=== PATIENT | female | born 1985 | race American Indian/Alaskan Native ===

== ENCOUNTER 2018-04-17 22:10 | Emergency (ER) | payer SELFPAY ==
[2018-04-17] MEDS ORDERED: MOTRIN ONE (22:46)
[2018-04-17 22:55] VITALS: BP 116/75
[2018-04-17] MEDS ORDERED: MOTRIN PO ONE (22:58)
--- NOTE | 2018-04-17 23:30 | XRay Report ---
FINAL REPORT PROCEDURE: XR SPINE LUMBOSACRAL 2-3V TECHNIQUE: Lumbar spine radiographs, including AP, lateral, and lumbosacral spot views. CPT 82888 HISTORY: Lower back pain. COMPARISON: No prior studies are available for comparison. FINDINGS: Alignment: Slight dextroscoliotic curvature. Vertebral body heights/Disk spaces: Mild L5-S1 disc space narrowing. Fracture(s): Subtle lucency through the left L1 transverse process. Facets: Normal. Bone mineralization: Normal. IMPRESSION: Subtle lucency through the left L1 transverse process, most likely overlying soft tissues or congenital non fusion. Consider further evaluation and followup if there is concern for minimally displaced fracture. Mild L5-S1 degenerative change.
[2018-04-18] MEDS ORDERED: TORADOL ONE (01:36)
[2018-04-18] MEDS ORDERED: FLEXERIL ONE (01:36)
[2018-04-18] MEDS ORDERED: TORADOL IM ONE (02:07)
[2018-04-18] MEDS ORDERED: FLEXERIL PO ONE (02:07)
--- NOTE | 2018-04-18 02:25 | Emergency Department Report ---
ED Back Pain/Injury HPI - General Chief Complaint: Back Pain/Injury Stated Complaint: LOWER BACK PAIN Time Seen by Provider: 04/18/18 01:48 Source: patient Limitations: No Limitations - History of Present Illness Initial Comments: 32-year-old female past medical history diabetes presents with complaint of left back pain. 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 States that it was specifically when she was bending over slightly. Patient denies any fevers chills nausea vomiting chest pain abdominal pain paresthesias or saddle paresthesias. Patient is ambulatory without assistance. States it felt like a severe muscle strain. Denies any chest pain radiating to back. Patient is fully lucid. States her pain is significantly better after medicines that were given by paramedics earlier. Patient denies any increased urinary frequency fevers or chills. MD Complaint: back pain -: This evening Place: home Severity: moderate Severity scale (0 -10): 5 Quality: aching Consistency: intermittent Improves With: movement Context: turning/twisting, bending Associated Symptoms: denies other symptoms - Related Data Home Medications Medication Instructions Recorded Confirmed Last Taken metFORMIN 500 mg PO BID 04/17/18 04/17/18 Unknown Previous Rx's Medication Instructions Recorded Last Taken Type Blood Sugar Diagnostic [Accu-Chek 1 each MC QDAY #1 box 04/18/18 Unknown Rx Guide Test Strip] Cyclobenzaprine [Flexeril] 10 mg PO TID PRN #15 tablet 04/18/18 Unknown Rx Naproxen 500 mg PO BID PRN #20 tablet 04/18/18 Unknown Rx Allergies Allergy/AdvReac Type Severity Reaction Status Date / Time No Known Allergies Allergy Verified 04/17/18 22:58 ED Review of Systems ROS: Stated complaint: LOWER BACK PAIN Other details as noted in HPI Constitutional: denies: chills, fever Eyes: denies: eye pain, eye discharge, vision change ENT: denies: ear pain, throat pain Respiratory: denies: cough, shortness of breath, wheezing Cardiovascular: denies: chest pain, palpitations Endocrine: no symptoms reported Gastrointestinal: denies: abdominal pain, nausea, diarrhea Genitourinary: denies: urgency, dysuria, discharge Musculoskeletal: back pain. denies: joint swelling, arthralgia Skin: denies: rash, lesions Neurological: denies: headache, weakness, paresthesias Psychiatric: denies: anxiety, depression Hematological/Lymphatic: denies: easy bleeding, easy bruising ED Past Medical Hx - Past Medical History Hx Diabetes: Yes Additional medical history: Chronic Bronchitis - Surgical History Past Surgical History?: No - Social History Smoking Status: Current Every Day Smoker Substance Use Type: None - Medications Home Medications: Home Medications Medication Instructions Recorded Confirmed Last Taken Type metFORMIN 500 mg PO BID 04/17/18 04/17/18 Unknown History Blood Sugar Diagnostic [Accu-Chek 1 each MC QDAY #1 box 04/18/18 Unknown Rx Guide Test Strip] Cyclobenzaprine [Flexeril] 10 mg PO TID PRN #15 tablet 04/18/18 Unknown Rx Naproxen 500 mg PO BID PRN #20 tablet 04/18/18 Unknown Rx ED Physical Exam - General Limitations: No Limitations General appearance: alert, in no apparent distress - Head Head exam: Present: atraumatic, normocephalic - Eye Eye exam: Present: normal appearance, PERRL, EOMI - ENT ENT exam: Present: mucous membranes moist - Neck Neck exam: Present: normal inspection - Respiratory Respiratory exam: Present: normal lung sounds bilaterally. Absent: respiratory distress - Cardiovascular Cardiovascular Exam: Present: regular rate, normal rhythm. Absent: systolic murmur, diastolic murmur, rubs, gallop - GI/Abdominal GI/Abdominal exam: Present: soft, normal bowel sounds - Extremities Exam Extremities exam: Present: normal inspection - Back Exam Back exam: Present: normal inspection, full ROM, paraspinal tenderness (no midline tenderness cervical thoracic or lumbar spine. Slight paraspinal left- sided thoracic/lumbar tenderness.) - Neurological Exam Neurological exam: Present: alert, oriented X3, CN II-XII intact, normal gait - Expanded Neurological Exam Expanded Patient oriented to: Present: person, place, time Sensory exam: Upper Extremity Light Touch: Normal, Lower Extremity Light Touch: Normal Motor strength exam: RUE: 5, LUE: 5, RLE: 5, LLE: 5 Best Eye Response (Don): (1) no response Best Motor Response ([place]): (6) obeys commands Best Verbal Response ([place]): (5) oriented Don Total: 12 - Psychiatric Psychiatric exam: Present: normal affect, normal mood - Skin Skin exam: Present: warm, dry, intact, normal color. Absent: rash ED Course Vital Signs 04/17/18 04/17/18 04/17/18 22:41 22:59 23:59 Temperature 98.5 F Pulse Rate 82 Respiratory 16 18 18 Rate Blood Pressure 116/75 O2 Sat by Pulse 100 Oximetry 04/18/18 02:08 Temperature Pulse Rate Respiratory 18 Rate Blood Pressure O2 Sat by Pulse Oximetry ED Medical Decision Making - Medical Decision Making A/P: Acute on chronic back pain, herniated disc 1-Flexeril and naproxen when necessary 2-follow up with primary care and outpatient neurosurgery 3-x-ray consistent with degenerative changes 4-she feels significantly better after dose of Toradol. Critical care attestation.: If time is entered above; I have spent that time in minutes in the direct care of this critically ill patient, excluding procedure time. ED Disposition Clinical Impression: Back pain Qualifiers: Back pain location: low back pain Chronicity: acute Back pain laterality: left Sciatica presence: without sciatica Qualified Code(s): M54.5 - Low back pain Disposition: DC- TO HOME OR SELFCARE Is pt being admited?: No Does the pt Need Aspirin: No Condition: Stable Instructions: Muscle Spasm (ED), Chronic Back Pain (ED), Back Pain (ED) Prescriptions: Blood Sugar Diagnostic [Accu-Chek Guide Test Strip] 1 each MC QDAY #1 box Cyclobenzaprine [Flexeril] 10 mg PO TID PRN #15 tablet PRN Reason: Muscle Spasm Naproxen 500 mg PO BID PRN #20 tablet PRN Reason: Pain Referrals: [facility] [Provider Group] - 3-5 Days [facility] [Outside] - 3-5 Days LORY MCALLISTER MD [Staff Physician] - 3-5 Days Forms: Accompanied Note, Work/School Release Form(ED) Time of Disposition: 03:09
== END 2018-04-18 03:19 | disposition home or self-care (01) ==
LOC: ED 22:10
DX: M54.5 Low back pain (principal); E11.9 Type 2 diabetes mellitus without complications; F17.200 Nicotine dependence, unspecified, uncomplicated; Z79.84 Long term (current) use of oral hypoglycemic drugs
CPT/HCPCS: 72100; 96372; 99283; J1885

== ENCOUNTER 2018-08-19 10:57 | Emergency (ER) | payer SELFPAY ==
[2018-08-19 11:37] VITALS: BP 130/74
--- NOTE | 2018-08-19 13:01 | Emergency Department Report ---
Abscess Boil HPI - HPI Chief Complaint: Skin/Abscess/Foreign Body Stated Complaint: CHEST TIGHTEN/LUMP ON BREAST Time Seen by Provider: 08/19/18 12:56 Duration: 2 Days Location: Other (right breast) Severity: Severe (06/19) History: Yes Pain (right breast pain), Yes Purulent Drainage (right breast), Yes Previous History (multiple episodes on both breasts in the past), No Fever, No Numbness, No Foreign Body, No Insect Bite HPI: This is a 32-year-old female presented emergency room with abscess to right breast and she says she gets this several times. She says she has been evaluated by [employer] and she is gotten a mammogram in the past. She said her mom has the same problem and she has been getting this since she was 22 years old. Reports she has been post and warm compresses the site. now it open injuring in small amount of pus. Denies any fever or chills. Home Medications: Home Medications Medication Instructions Recorded Confirmed Last Taken metFORMIN 500 mg PO BID 04/17/18 04/17/18 Unknown Previous Rx's Medication Instructions Recorded Last Taken Type Blood Sugar Diagnostic [Accu-Chek 1 each MC QDAY #1 box 04/18/18 Unknown Rx Guide Test Strip] Cyclobenzaprine [Flexeril] 10 mg PO TID PRN #15 tablet 04/18/18 Unknown Rx Naproxen 500 mg PO BID PRN #20 tablet 04/18/18 Unknown Rx Sulfamethoxazole/Trimethoprim 1 each PO BID 10 Days #20 tablet 08/19/18 Unknown Rx [Bactrim DS TAB] cephALEXin [Keflex] 500 mg PO Q8HR 10 Days #30 cap 08/19/18 Unknown Rx traMADol [Ultram 50 MG tab] 50 mg PO Q6HR PRN #20 tablet 08/19/18 Unknown Rx Allergies/Adverse Reactions: Allergies Allergy/AdvReac Type Severity Reaction Status Date / Time No Known Allergies Allergy Verified 04/17/18 22:58 ED Review of Systems ROS: Stated complaint: CHEST TIGHTEN/LUMP ON BREAST Other details as noted in HPI Constitutional: denies: chills, fever Eyes: denies: eye discharge ENT: denies: ear pain, throat pain, congestion Respiratory: denies: cough, shortness of breath, SOB with exertion, SOB at rest , stridor, wheezing Cardiovascular: denies: chest pain, palpitations, dyspnea on exertion, edema, syncope Gastrointestinal: denies: abdominal pain, nausea, vomiting, diarrhea Musculoskeletal: denies: back pain, joint swelling, arthralgia, myalgia Skin: other (abscess to right prior). denies: rash, lesions Neurological: denies: headache, paresthesias Hematological/Lymphatic: easy bleeding, easy bruising ED Past Medical Hx - Past Medical History Previous Medical History?: Yes Hx Diabetes: Yes Additional medical history: Chronic Bronchitis - Surgical History Past Surgical History?: No - Family History Family history: hypertension - Social History Smoking Status: Current Every Day Smoker Substance Use Type: None - Medications Home Medications: Home Medications Medication Instructions Recorded Confirmed Last Taken Type metFORMIN 500 mg PO BID 04/17/18 04/17/18 Unknown History Blood Sugar Diagnostic [Accu-Chek 1 each MC QDAY #1 box 04/18/18 Unknown Rx Guide Test Strip] Cyclobenzaprine [Flexeril] 10 mg PO TID PRN #15 tablet 04/18/18 Unknown Rx Naproxen 500 mg PO BID PRN #20 tablet 04/18/18 Unknown Rx Sulfamethoxazole/Trimethoprim 1 each PO BID 10 Days #20 tablet 08/19/18 Unknown Rx [Bactrim DS TAB] cephALEXin [Keflex] 500 mg PO Q8HR 10 Days #30 cap 08/19/18 Unknown Rx traMADol [Ultram 50 MG tab] 50 mg PO Q6HR PRN #20 tablet 08/19/18 Unknown Rx ED Abscess Boil Physical Exam - Exam General: Vital signs noted. No distress. Alert and acting appropriately. Front/Back of Body, Lg (Color): 1 - Patient with 2 cm indurated, fluctuant abscess to right breast. Surrounding erythema. Tender to palpate. No nipple involvement. Abscess is localized and bilateral breast exam is normal Size: 2 cm Exam: Yes Tenderness (localized to right anterolateral breasts. This is at the 3 o'clock position but they have), Yes Fluctuance, Yes Surrounding Cellulites/ Erythema, Yes Normal Neurologic Exam (alert and oriented 3, normal [facility]len), No Lymphangitis, No Crepitation, No Heart Murmur, No Normal Circulation I & D Note - I & D Note I & D Note: Right breast incision and drained. Right breast abscess 2 cm indurated and fluctuant cleansed with iodine and normal saline. 5 mL of lidocaine without epi place the side. #11 blade gaze used to make half a centimeter incision in Center for abscess and expressed large amount of malodorous pus. Area packed and sterile dry dressing placed inside. Patient to return in 3 days after starting antibiotic for reevaluation. Her tetanus vaccine is up-to-date ED Course Vital Signs 08/19/18 11:30 Temperature 98.3 F Pulse Rate 93 H Respiratory 20 Rate Blood Pressure 130/74 O2 Sat by Pulse 99 Oximetry - Reevaluation(s) Reevaluation #1: 08/19/18 15:00 Patient received clindamycin 600 mg by mouth, acetaminophen 2 tablets by mouth in the emergency room for pain and infection. Her pain has been controlled. Started on Bactrim DS without any adverse reaction. Procedure note for details on incision and drainage Critical care attestation.: If time is entered above; I have spent that time in minutes in the direct care of this critically ill patient, excluding procedure time. ED Medical Decision Making - Medical Decision Making This is a 32-year-old female here report for recurrent abscess to right breast. She says she gets this several time but she does not usually comes on Hospital because they usually drain on their own. She is reporting pain and drainage from site Please refer to procedure note for incision and drainage of abscess to right breast Right breast wound culture collected and sent. Results are pending Assessment/plan 1: Right breast abscess and cellulitis-incision and drainage procedure done please refer to procedure note for detail. Patient was started on Bactrim DS to cover infection and also given 5/325 2 tablets by mouth for pain. Wound culture sent. I discussed the patient diagnosis and treatment plan she needs to follow-up in 3 days after starting antibiotic to reevaluate wound and possible removal of packing. I told her she needs to place warm compresses to affected site 3 times a day to facilitate remainder of drainage from her right breast. She is a diabetic and she said her blood sugar was 150 this morning and they told her she needs to keep her blood sugar on the low side by taking her metformin and that she needs to follow up with outside Medical Center as she does not have a primary care physician. Her vital signs are stable and she is afebrile. I discussed with her she is to drink plenty of fluid and to keep ear clean and dry. She given prescription for Ultram, Keflex and Bactrim along with good Rx prescription card. ED Disposition Clinical Impression: Abscess or cellulitis of chest wall, Encounter for incision and drainage procedure Disposition: TO HOME OR SELFCARE Is pt being admited?: No Does the pt Need Aspirin: No Condition: Stable Instructions: Abscess Incision and Drainage (ED), Cellulitis (ED) Additional Instructions: Please take Bactrim and Keflex as prescribed and use your good are excoriated and this will make it more economical Follow-up with outside Medical Center in 2 days for evaluation. return to the emergency room in 3 days after taking antibiotic to be reevaluated and removal of back The condition worsens, and your blood glucose get over 250, fever and/or chills , nausea and vomiting, please return to emergency room [facility] Referrals: [facility] [Outside] - 08/21/18 return to, emergency room [Other] - 08/22/18 Forms: Work/School Release Form(ED)
[2018-08-19] MEDS ORDERED: NORCO 5/325 PO ONE (13:02)
[2018-08-19] MEDS ORDERED: XYLOCAINE 1% MPF 5 mL INFILTRATI ONE (13:02)
[2018-08-19] MEDS ORDERED: BACTRIM DS PO ONE (13:02)
== END 2018-08-19 15:32 | disposition home or self-care (01) ==
LOC: ED 10:57
DX: N61.1 Abscess of the breast and nipple (principal); E11.9 Type 2 diabetes mellitus without complications; F17.200 Nicotine dependence, unspecified, uncomplicated; Z79.899 Other long term (current) drug therapy
CPT/HCPCS: 87116; 99282

== ENCOUNTER 2019-12-13 10:42 | Emergency (ER) | payer SELFPAY ==
[2019-12-13 11:00] VITALS: BP 118/62
[2019-12-13 12:31] LABS: Bilirubin,Urine NEG (Negative); Blood,Urine NEG (Negative); Color,Urine Yellow (Yellow); Mucus,Urine FEW /HPF; Protein,Urine <15 mg/dL mg/dL (Negative); Urobilinogen,Urine < 2.0 mg/dL (<2.0); WBC,Urine < 1.0 /HPF (0.0-6.0)
[2019-12-13 12:42] LABS: HCG Qualitative,Urine Negative (Negative)
--- NOTE | 2019-12-13 15:13 | Emergency Department Report ---
ED General Adult HPI - General Chief complaint: Medical Clearance Stated complaint: LT FINGER PAIN/PELVIC PAIN Time Seen by Provider: 12/13/19 14:56 Source: patient Mode of arrival: Ambulatory Limitations: No Limitations - History of Present Illness Initial comments: 34-year-old -Maced[place] female comes in with multiple complaints. Patient comes in stating that she has a skin tag to her right scientologist for the last 6-7 months but in the last day or 2 has come larger and more painful. Patient also complains of left wrist pain with no trauma. And she complains of 2 weeks of pelvic pressure with no vaginal discharge or vaginal bleeding. Patient reports her last menstrual period was worried the second 2020. Patient is 0 para 0. Location: pelvis Consistency: intermittent Associated Symptoms: shortness of breath. denies: chest pain, cough, fever/chills, headaches, loss of appetite, nausea/vomiting Treatments Prior to Arrival: none - Related Data Home Medications Medication Instructions Recorded Confirmed Last Taken metFORMIN 500 mg PO BID 04/17/18 04/17/18 Unknown Previous Rx's Medication Instructions Recorded Last Taken Type Blood Sugar Diagnostic [Accu-Chek 1 each MC QDAY #1 box 04/18/18 Unknown Rx Guide Test Strip] Cyclobenzaprine [Flexeril] 10 mg PO TID PRN #15 tablet 04/18/18 Unknown Rx Naproxen 500 mg PO BID PRN #20 tablet 04/18/18 Unknown Rx Sulfamethoxazole/Trimethoprim 1 each PO BID 10 Days #20 tablet 08/19/18 Unknown Rx [Bactrim DS TAB] cephALEXin [Keflex] 500 mg PO Q8HR 10 Days #30 cap 08/19/18 Unknown Rx traMADoL [Ultram 50 MG tab] 50 mg PO Q6HR PRN #20 tablet 08/19/18 Unknown Rx Allergies Allergy/AdvReac Type Severity Reaction Status Date / Time No Known Allergies Allergy Verified 04/17/18 22:58 ED Review of Systems ROS: Stated complaint: LT FINGER PAIN/PELVIC PAIN Other details as noted in HPI Comment: All other systems reviewed and negative ED Past Medical Hx - Past Medical History Previous Medical History?: Yes Hx Diabetes: Yes Additional medical history: Chronic Bronchitis - Surgical History Past Surgical History?: No - Social History Smoking Status: Current Every Day Smoker Substance Use Type: Alcohol, Marijuana - Medications Home Medications: Home Medications Medication Instructions Recorded Confirmed Last Taken Type metFORMIN 500 mg PO BID 04/17/18 04/17/18 Unknown History Blood Sugar Diagnostic [Accu-Chek 1 each MC QDAY #1 box 04/18/18 Unknown Rx Guide Test Strip] Cyclobenzaprine [Flexeril] 10 mg PO TID PRN #15 tablet 04/18/18 Unknown Rx Naproxen 500 mg PO BID PRN #20 tablet 04/18/18 Unknown Rx Sulfamethoxazole/Trimethoprim 1 each PO BID 10 Days #20 tablet 08/19/18 Unknown Rx [Bactrim DS TAB] cephALEXin [Keflex] 500 mg PO Q8HR 10 Days #30 cap 08/19/18 Unknown Rx traMADoL [Ultram 50 MG tab] 50 mg PO Q6HR PRN #20 tablet 08/19/18 Unknown Rx ED Physical Exam - General Limitations: No Limitations General appearance: alert, in no apparent distress - Head Head exam: Present: other (right preauricular abscess) - Eye Eye exam: Present: normal appearance - ENT ENT exam: Present: mucous membranes moist - Neck Neck exam: Present: normal inspection - Respiratory Respiratory exam: Present: normal lung sounds bilaterally. Absent: respiratory distress - Cardiovascular Cardiovascular Exam: Present: regular rate, normal rhythm. Absent: systolic murmur, diastolic murmur, rubs, gallop - GI/Abdominal GI/Abdominal exam: Present: soft, normal bowel sounds - Neurological Exam Neurological exam: Present: alert, oriented X3 - Psychiatric Psychiatric exam: Present: normal affect, normal mood - Skin Skin exam: Present: warm, dry, intact, normal color. Absent: rash ED Course Vital Signs 12/13/19 10:57 Temperature 98.5 F Pulse Rate 66 Respiratory 18 Rate Blood Pressure 118/62 O2 Sat by Pulse 100 Oximetry - I & D Right Head Type of Procedure: Simple Site: preauricular Blade Size: 11 I & D Procedure: betadine prep, sterile drapes applied, sterile dressing applied, no gauze wick placed ED Medical Decision Making - Medical Decision Making 34-year-old -[place] female comes in with multiple complaints. Patient comes in stating that she has a skin tag to her right scientologist for the last 6-7 months but in the last day or 2 has come larger and more painful. Patient also complains of left wrist pain with no trauma. And she complains of 2 weeks of pelvic pressure with no vaginal discharge or vaginal bleeding. Patient reports her last menstrual period was worried the 2019. Patient is 0 para 0. Critical care attestation.: If time is entered above; I have spent that time in minutes in the direct care of this critically ill patient, excluding procedure time. ED Disposition Clinical Impression: Abscess of preauricular sinus, Menstrual changes Strain of wrist, right Qualifiers: Encounter type: initial encounter Qualified Code(s): S66.911A - Strain of unspecified muscle, fascia and tendon at wrist and hand level, right hand, initial encounter Disposition: TO HOME OR SELFCARE Is pt being admited?: No Does the pt Need Aspirin: No Condition: Stable Instructions: Muscle Strain (ED), Abscess (ED), Premenstrual Syndrome (ED) Additional Instructions: [id number] ibuprofen 600 mg every 6-8 hours as needed for pain management. Follow up with the primary care provider I have listed one below for your convenience. Also recommend a wrist support that she can get from [facility] or [facility]. Referrals: PRIMARY CARE, [Primary Care Provider] - 3-5 Days TRINA KASPER MD [Staff Physician] - 3-5 Days
== END 2019-12-13 15:38 | disposition home or self-care (01) ==
LOC: ED 10:42
DX: S66.911A Strain of unspecified muscle, fascia and tendon at wrist and hand level, right hand, initial encounter (principal); L02.01 Cutaneous abscess of face; N92.6 Irregular menstruation, unspecified; F17.200 Nicotine dependence, unspecified, uncomplicated; E11.9 Type 2 diabetes mellitus without complications; Z79.84 Long term (current) use of oral hypoglycemic drugs; F12.10 Cannabis abuse, uncomplicated; X58.XXXA Exposure to other specified factors, initial encounter; Y93.89 Activity, other specified; Y92.89 Other specified places as the place of occurrence of the external cause; Y99.8 Other external cause status
CPT/HCPCS: 81001; 81025